=== PATIENT | male | born 1965 | race Caucasian/White ===

== ENCOUNTER 2025-05-24 10:55 | Emergency (ER) | payer MEDICAID ==
[~2025-05-24] VITALS: Ht 170.2 cm; Wt 87.5 kg
[2025-05-24] MEDS ORDERED: IBUPROFEN 600 MG TABLET ONE (11:18)
[2025-05-24] MEDS: IBUPROFEN 600 MG TABLET PO ONE (11:25)
[2025-05-24] MEDS ORDERED: NAPR-1164 PO (11:43)
[2025-05-24 12:21] VITALS: BP 148/102; TEMP 98.6; O2SAT 96
== END 2025-05-24 12:22 | disposition home or self-care (01) ==
LOC: ER 10:59
DX: S86.112A Strain of other muscle(s) and tendon(s) of posterior muscle group at lower leg level, left leg, initial encounter (principal); J44.9 Chronic obstructive pulmonary disease, unspecified; I10 Essential (primary) hypertension; E11.9 Type 2 diabetes mellitus without complications; F20.9 Schizophrenia, unspecified; F31.89 Other bipolar disorder; Z60.2 Problems related to living alone; Z86.718 Personal history of other venous thrombosis and embolism; W18.39XA Other fall on same level, initial encounter; Y93.67 Activity, basketball; Y92.89 Other specified places as the place of occurrence of the external cause; Y99.8 Other external cause status
CPT/HCPCS: 93971-TC

== ENCOUNTER 2025-06-17 14:06 | Emergency (ER) | payer MEDICAID, OTHER ==
[~2025-06-17] VITALS: Ht 170.2 cm; Wt 90.7 kg
[~2025-06-17 14:06] MED LIST: NAPR-1164 PO
[2025-06-17 14:36] VITALS: BP 122/82; TEMP 97.9; O2SAT 96
[2025-06-17] MEDS ORDERED: ACETAMINOPHEN ES 500 MG TABLET ONE (15:05)
[2025-06-17] MEDS: ACETAMINOPHEN ES 500 MG TABLET PO ONE (15:09)
== END 2025-06-17 16:11 | disposition home or self-care (01) ==
LOC: ER 14:07
DX: M79.604 Pain in right leg (principal); I10 Essential (primary) hypertension; E11.9 Type 2 diabetes mellitus without complications; J44.9 Chronic obstructive pulmonary disease, unspecified; Z86.718 Personal history of other venous thrombosis and embolism; Z60.2 Problems related to living alone
CPT/HCPCS: 73590-TC; 93971-TC